=== PATIENT | male | born 2000 | race Caucasian/White ===

== ENCOUNTER 2019-02-27 16:02 | Emergency (ER) | payer MEDICAID ==
[~2019-02-27] VITALS: Ht 182.9 cm; Wt 100.0 kg
[~2019-02-27 16:02] MED LIST: ACETAMINOPHEN500 M1 PO; IBUPROFEN800 MG PO; PREDNISONE20 MG PO; ZANTAC150 MG PO
[2019-02-27 16:17] VITALS: BP 159/84; Ht 182.9 cm; Wt 100.0 kg
== END 2019-02-27 17:33 | disposition home or self-care (01) ==
LOC: D.ER 16:02
DX: M79.671 Pain in right foot (principal)